=== PATIENT | female | born 1960 | race Caucasian/White ===

== ENCOUNTER 2025-02-16 00:15 | Emergency (ER) | payer MEDICARE, OTHER ==
[~2025-02-16] VITALS: Ht 162.6 cm; Wt 90.7 kg
[2025-02-16] MEDS ORDERED: ONDANSETRON 4 MG TAB.RAPDIS ONE (01:29)
[2025-02-16] MEDS ORDERED: MORPHINE SULFATE INJ 2 MG/ML DISP.SYRIN ONE (01:34)
[2025-02-16] MEDS: MORPHINE SULFATE INJ 2 MG/ML DISP.SYRIN IM ONE (01:45)
[2025-02-16] MEDS: ONDANSETRON 4 MG TAB.RAPDIS PO ONE (01:45)
[2025-02-16] MEDS ORDERED: NAPR-1009 PO (02:57)
[2025-02-16] MEDS ORDERED: CLONIDINE HCL 0.1 MG TABLET ONE (02:58)
[2025-02-16] MEDS: CLONIDINE HCL 0.1 MG TABLET PO ONE (03:02)
[2025-02-16 03:16] VITALS: BP 191/99; TEMP 98.2; O2SAT 98
== END 2025-02-16 03:17 | disposition home or self-care (01) ==
LOC: ER 00:22
DX: S33.5XXA Sprain of ligaments of lumbar spine, initial encounter (principal); S00.83XA Contusion of other part of head, initial encounter; M79.641 Pain in right hand; I10 Essential (primary) hypertension; M54.2 Cervicalgia; V43.62XA Car passenger injured in collision with other type car in traffic accident, initial encounter; Y93.89 Activity, other specified; Y92.89 Other specified places as the place of occurrence of the external cause; Y99.8 Other external cause status
CPT/HCPCS: 99285; 72125; 96372; 73090; 73130; 73060; 70450; 72131; 72128; Q0162; J2270